=== PATIENT | male | born 1985 | race African-American/Black ===

== ENCOUNTER 2023-09-15 19:04 | Emergency (ER) | payer MEDICAID ==
[~2023-09-15] VITALS: Ht 170.2 cm; Wt 68.0 kg
[2023-09-15 19:24] VITALS: BP 118/76; PULSE 89; RESP 18; TEMP 97.8; O2SAT 98
[2023-09-15] MEDS ORDERED: IBUP-2029 MT (22:10)
[2023-09-15] MEDS ORDERED: NEOM28.37 TP (22:10)
[2023-09-15] MEDS ORDERED: TRAM50TA3 MT (22:36)
[2023-09-15] MEDS: IBUPROFEN 600MG TABLET PO ONE (22:42)
[2023-09-15] MEDS: METHOCARBAMOL 500MG TABLET PO ONE (22:42)
[2023-09-15] MEDS: BACITRACIN ZINC OINT UDPKT TOP ONE (22:42)
[2023-09-15] MEDS: TETANUS, DIPHTHERIA, PERTUSSIS VAC/PF 0.5ML (>10YR OLD) IM ONE (22:42)
== END 2023-09-15 22:41 | disposition home or self-care (01) ==
LOC: ER 19:12
DX: S43.401A Unspecified sprain of right shoulder joint, initial encounter (principal); V29.99XA Rider (driver) (passenger) of other motorcycle injured in unspecified traffic accident, initial encounter; Y93.89 Activity, other specified; Y92.89 Other specified places as the place of occurrence of the external cause; Y99.8 Other external cause status
CPT/HCPCS: 73030; 90471; 90715; 99283